=== PATIENT | female | born 1990 ===

== ENCOUNTER 2020-12-20 07:00 | Day surgery (SDC) | payer OTHER ==
[~2020-12-20 07:00] MED LIST: COZAAR100 MG PO; DUPIXENT300 MG/2 M; ZYRTEC10 M3 PO
[2020-12-20] MEDS ORDERED: IBU800 MG PO (10:52)
== END 2020-12-20 14:50 | disposition home or self-care (01) ==
LOC: CIR.AMB 07:00
PROVIDERS: ATTEND Obstetrics & Gynecology Gynecology
DX: N84.0 Polyp of corpus uteri (principal); Z20.822 Contact with and (suspected) exposure to COVID-19